=== PATIENT | female | born 1965 | race Caucasian/White ===

== ENCOUNTER → 2017-12-26 10:27 | Outpatient (CLI) | payer OTHER, SELFPAY ==
--- NOTE | 2017-12-26 10:31 | MM_ITS ---
MM Dig screening mamm BI w/CAD CAD Screening COMPARISON: Digital mammograms with CAD 01/28/2013 INDICATION: There is no personal or family history of breast cancer TECHNIQUE: Standard CC and MLO images were obtained. R2 CAD reviewed. FINDINGS: Moderate diffuse fibroglandular densities are seen throughout both breasts. A couple benign appearing castration is right breast and a single benign-appearing calcination left breast. There is no suspicious lesion and there are no suspicious microcalcifications. IMPRESSION: Moderate diffuse breast density with no suspicious lesion seen BI-RADS Category: 2 Benign Finding(s) RECOMMENDED FOLLOW-UP: 1YR - 1 YEAR FOLLOW-UP (A letter has been sent to the patient regarding results of the study.)
== END ==
PROVIDERS: PCP Obstetrics & Gynecology; Visit Provider Obstetrics & Gynecology
DX: Z12.31 Encounter for screening mammogram for malignant neoplasm of breast (principal)
CPT/HCPCS: 77067

== ENCOUNTER → 2018-12-30 15:58 | Outpatient (CLI) | payer OTHER, SELFPAY ==
--- NOTE | 2018-12-30 15:59 | MM_ITS ---
PROCEDURE: MM DIG SCREENING MAMM BI W/CAD CLINICAL INDICATION: Routine Screening Mammogram There is no personal or family history of breast cancer COMPARISON: MAMMO 3D SCREEN BILAT from 01/28/2013 [facility] MM Dig screening mamm BI w/CAD from 12/26/2017 TECHNIQUE: Standard CC and MLO images were obtained. R2 CAD reviewed. FINDINGS: Moderate diffuse fibroglandular densities are seen in the central portions of both breasts. There are couple of benign-appearing calcifications in each breast. There is no suspicious lesion in either breast and no suspicious microcalcifications. IMPRESSION: Moderate breast density with no suspicious lesions seen BI-RAD Category: 2 Benign Finding(s) FOLLOW-UP: 1YR 1 Year Follow-up (A letter has been sent to the patient regarding results of the study.) Dictated by: Dr. Carlos Barreto MD 12/31/2018 12:[address] Carlos Barreto MD in [place] 12/31/2018 12:35
== END ==
PROVIDERS: PCP Obstetrics & Gynecology; Visit Provider Obstetrics & Gynecology
DX: Z12.31 Encounter for screening mammogram for malignant neoplasm of breast (principal)
CPT/HCPCS: 77067

== ENCOUNTER → 2020-02-08 08:42 | Outpatient (CLI) | payer BC, SELFPAY ==
--- NOTE | 2020-02-08 08:43 | MM_ITS ---
PROCEDURE: MM DIG SCREENING MAMM BI W/CAD Digital Breast Tomosynthesis Included CLINICAL INDICATION: Routine Screening Mammogram There is no personal or family history of breast cancer. COMPARISON: MG MAMMO 3D SCREEN BILAT from 01/28/2013 MG [facility] MM Dig screening mamm BI w/CAD from 12/26/2017 MG MM DIG SCREENING MAMM BI W/CAD from 12/30/2018 TECHNIQUE: Standard CC and MLO images and 3D Tomosynthesis was obtained. R2 CAD reviewed. FINDINGS: Moderate diffuse fibroglandular densities are seen in the central portions of both breasts. There are couple of benign-appearing calcifications in each breast. There is no suspicious lesion in either breast and no suspicious microcalcifications. IMPRESSION: Moderate breast density with no suspicious lesions seen BI-RAD Category: 2 Benign Finding(s) FOLLOW-UP: 1YR 1 Year Follow-up (A letter has been sent to the patient regarding results of the study.) Dictated by: Dr. Carlos Barreto MD 02/08/2020 19:55 Dr. Carlos Barreto MD in [place] 02/08/2020 19:55
== END ==
PROVIDERS: PCP Obstetrics & Gynecology; Visit Provider Obstetrics & Gynecology
DX: Z12.31 Encounter for screening mammogram for malignant neoplasm of breast (principal)
CPT/HCPCS: 77063; 77067

== ENCOUNTER → 2021-02-20 14:44 | Outpatient (CLI) | payer BC, SELFPAY ==
--- NOTE | 2021-02-20 14:45 | MM_ITS ---
PROCEDURE INFORMATION: Exam: MG Bilateral Screening 3D Mammography Exam date and time: 02/20/2021 2:45 PM Age: 55 years old Clinical indication: Screening exam; No personal or family HX of malignancy TECHNIQUE: Imaging protocol: Bilateral screening tomosynthesis and 2D mammography including computer-aided detection (CAD) when performed. COMPARISON: 1. MG MM DIG SCREENING MAMM BI W/CAD 02/08/2020 8:49 AM 2. MG MM DIG SCREENING MAMM BI W/CAD 12/30/2018 4:14 PM FINDINGS: MAMMOGRAPHY: Breast composition: The breast tissue is heterogeneously dense, which may obscure small masses. Mass: 0.6 cm mass best seen on tomographic images in the posterior third of the left upper Architectural distortion: None. Calcifications: No suspicious calcifications. Asymmetric density: None. Skin thickening: None. Axillary adenopathy: None. IMPRESSION: Patient to be recalled for left breast ultrasound for further evaluation of a left breast mass. ASSESSMENT: BI-RADS Category 0: Incomplete- Need Additional Imaging Evaluation and/or Prior Mammograms for Comparison
== END ==
PROVIDERS: PCP Family Medicine; Visit Provider Obstetrics & Gynecology
DX: Z12.31 Encounter for screening mammogram for malignant neoplasm of breast (principal)
CPT/HCPCS: 77063; 77067

== ENCOUNTER → 2021-03-07 14:22 | Outpatient (CLI) | payer BC, SELFPAY ==
--- NOTE | 2021-03-07 14:23 | US_ITS ---
PROCEDURE INFORMATION: Exam: US Left Breast, Complete Exam date and time: 03/07/2021 2:23 PM Age: 55 years old Clinical indication: Patient recalled for further evaluation of a left breast mass TECHNIQUE: Imaging protocol: Complete ultrasound of all four quadrants of the Left breast and the retroareolar regions, including ultrasound of the axilla when performed. COMPARISON: MG MM DIG SCREENING MAMM BI W/CAD 02/20/2021 2:45 PM FINDINGS: Breast: Sonographic images of the left breast including the retroareolar region, all 4 quadrants and the axilla do not demonstrate any solid masses. Few scattered subcentimeter cysts are present. However, the 0.6 cm mass in the posterior third of the left upper outer quadrant on recent mammogram is sonographically occult. No architectural distortion or acoustical shadowing. No skin thickening or axillary adenopathy. IMPRESSION: Benign mammographically visible subcentimeter mass in the posterior left upper outer quadrant. A six-month follow-up diagnostic left mammogram is recommended to ensure stability of the pattern identified unless otherwise clinically indicated. ASSESSMENT: BI-RADS Category 4: Suspicious
== END ==
PROVIDERS: PCP Family Medicine; Visit Provider Obstetrics & Gynecology
DX: R92.8 Other abnormal and inconclusive findings on diagnostic imaging of breast (principal); N63.20 Unspecified lump in the left breast, unspecified quadrant
CPT/HCPCS: 76641

== ENCOUNTER → 2021-10-12 13:22 | Outpatient (CLI) | payer BC, SELFPAY ==
--- NOTE | 2021-10-12 13:50 | MM_ITS ---
PROCEDURE INFORMATION: Exam: MG Left Diagnostic Breast Tomosynthesis Exam date and time: 10/12/2021 1:46 PM Age: 56 years old Clinical indication: Six-month follow-up left diagnostic mammogram was recommended on 03/07/2021 to assess stability of a sonographically occult 6 mm upper outer posterior left breast mass TECHNIQUE: Imaging protocol: Left Diagnostic tomosynthesis and 2D mammography including computer-aided detection (CAD) when performed. Unilateral or bilateral exam. COMPARISON: 1. MG MM DIG SCREENING MAMM BI W/CAD 02/20/2021 2:45 PM 2. MG MM DIG SCREENING MAMM BI W/CAD 02/08/2020 8:49 AM 3. MG MM DIG SCREENING MAMM BI W/CAD 12/30/2018 4:14 PM 4. MG [facility] MM Dig screening mamm BI w/CAD 12/26/2017 10:49 AM FINDINGS: MAMMOGRAPHY: The breast is heterogeneously dense, which may obscure small masses. There is a persistent mostly obscured upper outer posterior left breast 0.6 cm mass without associated architectural distortion or suspicious calcifications. This is unchanged compared with prior mammogram. No new mass, architectural distortion, or suspicious calcifications have developed to suggest malignancy. No axillary adenopathy. IMPRESSION: Continued surveillance is recommended to assure stability of a 0.6 cm upper outer posterior sonographically occult mostly obscured mass which is unchanged compared with 02/20/2021 ASSESSMENT: BI-RADS category 3: Probably benign
== END ==
PROVIDERS: PCP Family Medicine; Visit Provider Obstetrics & Gynecology
DX: N63.20 Unspecified lump in the left breast, unspecified quadrant (principal); R92.8 Other abnormal and inconclusive findings on diagnostic imaging of breast
CPT/HCPCS: 77061; 77065; G0279

== ENCOUNTER → 2022-09-05 12:42 | Outpatient (CLI) | payer BC, SELFPAY ==
--- NOTE | 2022-09-05 12:43 | MM_ITS ---
PROCEDURE INFORMATION: Exam: MG Bilateral Diagnostic Breast Tomosynthesis Exam date and time: 09/05/2022 12:57 PM Age: 56 years old Clinical indication: Short-term radiographic followup; left breast mass TECHNIQUE: Imaging protocol: Bilateral Diagnostic tomosynthesis and 2D mammography including computer-aided detection (CAD) when performed. Unilateral or bilateral exam. COMPARISON: 1. MG MM DIG MAMM DX UNILAT LT CAD 10/12/2021 1:46 PM 2. MG MM DIG SCREENING MAMM BI W/CAD 02/20/2021 2:45 PM FINDINGS: MAMMOGRAPHY: The breasts are heterogeneously dense, which may obscure small masses. There is no stellate mass, architectural distortion or suspicious microcalcifications in either breast to suggest malignancy. No persistent focal subcentimeter mass lesion in the posterior left upper outer quadrant. No skin thickening or axillary adenopathy. IMPRESSION: No mammographic evidence of malignancy. Annual bilateral mammographic screening is recommended unless otherwise clinically indicated. ASSESSMENT: BI-RADS Category 1: Negative
== END ==
PROVIDERS: PCP Family Medicine; Visit Provider Obstetrics & Gynecology
DX: R92.8 Other abnormal and inconclusive findings on diagnostic imaging of breast (principal)
CPT/HCPCS: 77062; 77066; G0279

== ENCOUNTER → 2022-10-23 10:17 | Outpatient (CLI) | payer BC, SELFPAY ==
--- NOTE | 2022-10-23 10:18 | US_ITS ---
PROCEDURE: US TRANSVAGINAL CLINICAL INDICATION: post menopausal bleeding COMPARISON: No exams were available for comparison FINDINGS: Transvaginal sonographic images were obtained of the pelvis. UTERUS: 5cm x 4cmx 2cm with a combined endometrial thickness of 3.9 mm. The uterus is retroverted. There are 2 fibroids within the uterus. Fibroid 1 Measures 0.8 cm x 0.6 cm x 0.7 cm. Posterior myometrium Fibroid 2 measures 0.8 cm x 0.5 cm x 0.8 cm. Anterior myometrium. LEFT OVARY: [id number] with a volume of 1.2ml. RIGHT OVARY: 1cmx [id number] with a volume of 0.7ml. There is hypervascular blood flow. Trace free fluid in the right adnexa. Both ovaries are seen and appear normal. Doppler flow to both ovaries are seen. There is no fluid in the cul-de-sac. IMPRESSION: 1. Retroverted small uterus with degenerative changes. The endometrium measures 3.9 mm at its thickest point. 2. There are 2 small 8 millimeter fibroids in the uterus. 3. Ovaries appear normal but there is hypervascular flow in the right ovary. Trace fluid in the right adnexa. Dictated by: Anthony Lopez MD 10/23/2022 18:11 Anthony Lopez MD in [place] 10/23/2022 18:11
== END ==
LOC: RAD 10:18
PROVIDERS: PCP Family Medicine; Visit Provider Obstetrics & Gynecology
DX: N95.0 Postmenopausal bleeding (principal)
CPT/HCPCS: 76830

== ENCOUNTER 2024-02-25 13:54 | Outpatient (CLI) | payer OTHER, SELFPAY ==
--- NOTE | 2024-02-25 13:55 | MM_ITS ---
PROCEDURE INFORMATION: Exam: MG Bilateral Screening 3D Mammography Exam date and time: 02/25/2024 1:47 PM Age: 58 years old Clinical indication: Screening exam. TECHNIQUE: Imaging protocol: Bilateral Screening tomosynthesis and 2D mammography including computer-aided detection (CAD) when performed. COMPARISON: 1. MG MM DIG MAMM BI DX W/CAD 09/05/2022 12:57 PM 2. MG MM DIG MAMM DX UNILAT LT CAD 10/12/2021 1:46 PM FINDINGS: MAMMOGRAPHY: Breast composition: The breasts are heterogeneously dense, which may obscure small masses. Mass: No suspicious masses. Architectural distortion: None. Calcifications: No suspicious calcifications. Asymmetric density: None. Skin thickening: None. Axillary adenopathy: None. IMPRESSION: No mammographic evidence of malignancy. Annual screening is recommended unless otherwise clinically indicated. ASSESSMENT: BI-RADS Category 1: Negative.
== END 2024-02-25 23:59 | disposition home or self-care (01) ==
LOC: RAD 13:55
PROVIDERS: PCP Family Medicine; Visit Provider Obstetrics & Gynecology
DX: Z12.31 Encounter for screening mammogram for malignant neoplasm of breast (principal)
CPT/HCPCS: 77063; 77067